=== PATIENT | female | born 1985 | race Caucasian/White ===

== ENCOUNTER 2016-04-04 14:40 | Inpatient (IN) | payer OTHER ==
[2016-04-04 15:21] VITALS: BMI 23.4
--- NOTE | 2016-04-04 17:28 | HP ---
CIWA Score - CIWA Score Nausea/Vomitin Muscle Tremors: 3 Anxiety: 3 Agitation: 2 Paroxysmal Sweats: 1-Minimal Palms Moist Orientation: 0-Oriented Tacttile Disturbances: 1-Very Mild Itch/Numbness Auditory Disturbances: 1-Very Mild Visual Disturbances: 1-Very Mild Sensitivity Headache: 2-Mild CIWA-Ar Total Score: 17 Admission ROS BHS - HPI Chief Complaint: i need help to stop drinking alcohol Allergies/Adverse Reactions: Allergies Allergy/AdvReac Type Severity Reaction Status Date / Time No Known Allergies Allergy Verified 04/04/16 17:25 History of Present Illness: this 30 years old transgender with alcohol dependence,withdrawal symptom,never been in detox before syncope alcohol related hiv since 2004 nicotine dependence no significant period of sobriety Exam Limitations: No Limitations - Ebola screening Have you traveled outside of the country in the last 21 days: No Have you had contact with anyone from an Ebola affected area: No Have you been sick,other than usual withdrawal symptoms: No Do you have a fever: No - Review of Systems Constitutional: Loss of Appetite, Malaise, Night Sweats, Changes in sleep, Weakness EENT: reports: Nose Congestion Respiratory: reports: No Symptoms reported Cardiac: reports: No Symptoms Reported GI: reports: Nausea, Vomiting, Abdominal cramping : reports: No Symptoms Reported Musculoskeletal: reports: Back Pain, Muscle Pain Neuro: reports: Tremors Endocrine: reports: No Symptoms Reported Hematology: reports: Other (hiv) Psychiatric: reports: No Sypmtoms Reported Patient History - Patient Medical History Hx Anemia: No Hx Asthma: No Hx Chronic Obstructive Pulmonary Disease (COPD): No Hx Cancer: No Hx Cardiac Disorders: No Hx Congestive Heart Failure: No Hx Hypertension: No Hx Hypercholesterolemia: No Hx Pacemaker: No HX Cerebrovascular Accident: No Hx Seizures: No Hx Dementia: No Hx Diabetes: No Hx Gastrointestinal Disorders: No Hx Liver Disease: No Hx Genitourinary Disorders: No Hx Sexually Transmitted Disorders: No Hx Renal Disease (ESRD): No Hx Thyroid Disease: No Hx Human Immunodeficiency Virus (HIV): Yes (since 2004) Hx Hepatitis C: No Hx Depression: No Hx Suicide Attempt: No Hx Bipolar Disorder: No Hx Schizophrenia: No Other Medical History: no suicidal,no homicidal - Patient Surgical History Past Surgical History: No Hx Neurologic Surgery: No Hx Cataract Extraction: No Hx Cardiac Surgery: No Hx Lung Surgery: No Hx Breast Surgery: No Hx Breast Biopsy: No Hx Abdominal Surgery: No Hx Appendectomy: No Hx Cholecystectomy: No Hx Genitourinary Surgery: No Hx Section: No Hx Orthopedic Surgery: No Anesthesia Reaction: No - PPD History Previous Implant?: Yes Documented Results: Negative w/o proof Implanted On [facility] Admission?: No PPD to be Administered?: Yes - Smoking Cessation Smoking history: Current every day smoker Have you smoked in the past 12 months: Yes Aproximately how many cigarettes per day: 10 Hx Chewing Tobacco Use: No Initiated information on smoking cessation: Yes 'Breaking Loose' booklet given: 04/04/16 - Substance & Tx. History Hx Alcohol Use: Yes Hx Substance Use: No Substance Use Type: Alcohol Hx Substance Use Treatment: No - Substances Abused Alcohol Route: Oral Frequency: Daily Amount used: LIQUOR- 3 PINTS, BEER- 2 SIX PACK Age of first use: 17 Date of Last Use: 04/04/16 Family Disease History - Family Disease History Family History: Denies Admission Physical Exam [facility] - Vital Signs Vital Signs: Vital Signs - 24 hr 04/04/16 04/04/16 15:17 17:22 Temperature 96.3 F L 96.3 F L Pulse Rate 83 83 Respiratory 20 20 Rate Blood Pressure 130/82 130/82 - Physical General Appearance: Yes: Moderate Distress, Tremorous, Irritable, Sweating, Anxious HEENTM: Yes: Nasal Congestion Respiratory: Yes: Lungs Clear Neck: Yes: Within Normal Limits Breast: Yes: Breast Exam Deferred Cardiology: Yes: Within Normal Limits, Regular Rhythm, Regular Rate, S1, S2 Abdominal: Yes: Within Normal Limits, Normal Bowel Sounds, Flat, Soft Genitourinary: Yes: Within Normal Limits Back: Yes: Muscle Spasm Musculoskeletal: Yes: Back pain, Muscle Pain Extremities: Yes: Tremors Neurological: Yes: home visits nurse II-XII NML intact, Fully Oriented, Alert, Motor Strength 5/5 Integumentary: Yes: Dry Lymphatic: Yes: Within Normal Limits - Diagnostic (1) Alcohol dependence with uncomplicated withdrawal Current Visit: Yes Status: Acute (2) Syncope Current Visit: Yes Status: Acute (3) HIV (human immunodeficiency virus infection) Current Visit: Yes Status: Acute (4) Transgender Current Visit: Yes Status: Acute (5) History of herpes genitalis Current Visit: Yes Status: Acute Cleared for Admission [facility] - Detox or Rehab [facility] Level of Care: Medically Managed Detox Regimen/Protocol: Librium (urine for drug screen showed postive for benzodiazepine) [facility] Breath Alcohol Content Breath Alcohol Content: 0 Urine Pregancy Test - Result Urine Test Results: Negative- NO Line Present Urine Drug Screen - Results Drug Screen Negative: No Urine Drug Screen Results: BZO-Benzodiazepines
[2016-04-04] MEDS ORDERED: chlordiazePOXIDE HCL 25 MG CAPSULE PO PRN (17:41)
[2016-04-04] MEDS ORDERED: hydrOXYzine PAMOATE 50 MG CAPSULE (FP) PO PRN (17:41)
[2016-04-04] MEDS ORDERED: MAG HYDROX/AL HYDROX/SIMETH 30 ML UNIT-DOSE CUP PO PRN (17:41)
[2016-04-04] MEDS ORDERED: LOPERAMIDE HCL 2 MG CAPSULE PO PRN (17:41)
[2016-04-04] MEDS ORDERED: P-EPHED 60MG/TRIPROLIDI 2.5MG TABLET PO PRN (17:41)
[2016-04-04] MEDS ORDERED: ACETAMINOPHEN 325 MG TABLET (FP) PO PRN (17:41)
[2016-04-04] MEDS ORDERED: chlordiazePOXIDE HCL 25 MG CAPSULE PO ONE (17:41)
[2016-04-04] MEDS ORDERED: NICOTINE POLACRILEX 2 MG GUM BC PRN (17:41)
[2016-04-04] MEDS ORDERED: MAGNESIUM CITRATE 300 ML BOTTLE PO PRN (17:41)
[2016-04-04] MEDS ORDERED: diphenhydrAMINE HCL 50 MG CAPSULE PO PRN (17:41)
[2016-04-04] MEDS ORDERED: IBUPROFEN 400 MG TABLET (FP) PO PRN (17:41)
[2016-04-04] MEDS ORDERED: MENTHOL/PHENOL 1 EACH UD MM PRN (17:41)
[2016-04-04] MEDS ORDERED: MAGNESIUM HYDROX 2400MG/30ML ORAL SUSPENSION 30 ML CUP PO PRN (17:41)
[2016-04-04] MEDS ORDERED: guaiFENesin/D-METHORPHAN HB 10 ML UNIT-DOSE CUPS PO PRN (17:41)
[2016-04-04] MEDS: THIAMINE HCL 100 MG TABLET (FP) PO SCH (22:32)
[2016-04-04] MEDS: chlordiazePOXIDE HCL 25 MG CAPSULE PO SCH (22:33)
[2016-04-05] MEDS: chlordiazePOXIDE HCL 25 MG CAPSULE PO SCH ×4 (06:14→22:40)
[2016-04-05 09:59] LABS: MCH 34.2 pg (25.7-33.7); MCHC 33.4 g/dl (32.0-36.0); MEAN CELL VOLUME 102.4 fl (80-96); MEAN PLT VOLUME 10.4 fl (7.5-11.1); PLATELET COUNT 161 K/MM3 (134-434); RDW 12.5 % (11.6-15.6); WHITE BLOOD COUNT 5.8 K/mm3 (4.0-10.0)
[2016-04-05 10:02] LABS: URINE APPEARANCE SLCLOUDY; URINE BILIRUBIN NEGATIVE (NEGATIVE); URINE BLOOD NEGATIVE (NEGATIVE); URINE COLOR YELLOW; URINE GLUCOSE (UA) NEGATIVE (NEGATIVE); URINE KETONE NEGATIVE (NEGATIVE); URINE LEUK ESTERASE NEGATIVE (NEGATIVE); URINE NITRITE NEGATIVE (NEGATIVE); URINE PROTEIN NEGATIVE (NEGATIVE); URINE UROBILINOGEN NEGATIVE E.U./dl (0.2-1.0)
[2016-04-05] MEDS: SPIRONOLACTONE 25 MG TABLET (FP) PO SCH (10:33)
[2016-04-05] MEDS: PRENATAL VITAMINS W/ FOLIC ACID TABLET (FP) PO SCH (10:33)
[2016-04-05 10:43] LABS: ALBUMIN 3.2 g/dl (3.4-5.0); ALK PHOS 67 U/L (45-117); ANION GAP 9 (8-16); BILIRUBIN,TOTAL 0.3 mg/dL (0.2-1.0); CALCIUM 8.5 mg/dL (8.5-10.1); CO2 25 mmol/L (21-32); CREATININE 0.9 mg/dL (0.55-1.02); GLUCOSE,RANDOM 90 mg/dL (74-106); SGOT/AST 13 U/L (15-37); SGPT/ALT 26 U/L (12-78); TOT PROT 6.1 g/dl (6.4-8.2)
--- NOTE | 2016-04-05 12:43 | PN ---
S CIWA - CIWA Score Nausea/Vomitin Muscle Tremors: 3 Anxiety: 3 Agitation: 2 Paroxysmal Sweats: 1-Minimal Palms Moist Orientation: 0-Oriented Tacttile Disturbances: 1-Very Mild Itch/Numbness Auditory Disturbances: 1-Very Mild Visual Disturbances: 1-Very Mild Sensitivity Headache: 2-Mild CIWA-Ar Total Score: 17 BHS Progress Note (SOAP) Subjective: ALERT,IRRITABLE,ANXIOUS,INTERRUPTED SLEEP,TREMOR Objective: 04/05/16 12:41 Vital Signs Temperature 97.9 F 04/05/16 11:03 Pulse Rate 88 04/05/16 11:03 Respiratory Rate 20 04/05/16 11:03 Blood Pressure 118/73 04/05/16 11:03 O2 Sat by Pulse Oximetry (%) EKG NSR,NORMAL ECG Laboratory Last Values WBC 5.8 K/mm3 (4.0-10.0) 04/05/16 07:20 RBC 3.92 M/mm3 (3.60-5.2) 04/05/16 07:20 Hgb 13.4 GM/dL (10.7-15.3) 04/05/16 07:20 Hct 40.2 % (32.4-45.2) 04/05/16 07:20 MCV 102.4 fl (80-96) H 04/05/16 07:20 MCHC 33.4 g/dl (32.0-36.0) 04/05/16 07:20 RDW 12.5 % (11.6-15.6) 04/05/16 07:20 Plt Count 161 K/MM3 (134-434) 04/05/16 07:20 MPV 10.4 fl (7.5-11.1) 04/05/16 07:20 Sodium 139 mmol/L (136-145) 04/05/16 07:20 Potassium 3.8 mmol/L (3.5-5.1) 04/05/16 07:20 Chloride 105 mmol/L (98-107) 04/05/16 07:20 Carbon Dioxide 25 mmol/L (21-32) 04/05/16 07:20 Anion Gap 9 (8-16) 04/05/16 07:20 BUN 12 mg/dL (7-18) 04/05/16 07:20 Creatinine 0.9 mg/dL (0.55-1.02) 04/05/16 07:20 Creat Clearance w eGFR > 60 (>60) 04/05/16 07:20 Random Glucose 90 mg/dL (74-106) 04/05/16 07:20 Calcium 8.5 mg/dL (8.5-10.1) 04/05/16 07:20 Total Bilirubin 0.3 mg/dL (0.2-1.0) 04/05/16 07:20 AST 13 U/L (15-37) L 04/05/16 07:20 ALT 26 U/L (12-78) 04/05/16 07:20 Alkaline Phosphatase 67 U/L (45-117) 04/05/16 07:20 Total Protein 6.1 g/dl (6.4-8.2) L 04/05/16 07:20 Albumin 3.2 g/dl (3.4-5.0) L 04/05/16 07:20 Urine Color Yellow 04/05/16 07:50 Urine Appearance Slcloudy 04/05/16 07:50 Urine pH 6.0 (5.0-8.0) 04/05/16 07:50 Ur Specific [place] 1.025 (1.001-1.035) 04/05/16 07:50 Urine Protein Negative (NEGATIVE) 04/05/16 07:50 Urine Glucose (UA) Negative (NEGATIVE) 04/05/16 07:50 Urine Ketones Negative (NEGATIVE) 04/05/16 07:50 Urine Blood Negative (NEGATIVE) 04/05/16 07:50 Urine Nitrite Negative (NEGATIVE) 04/05/16 07:50 Urine Bilirubin Negative (NEGATIVE) 04/05/16 07:50 Urine Urobilinogen Negative E.U./dl (0.2-1.0) 04/05/16 07:50 Ur Leukocyte Esterase Negative (NEGATIVE) 04/05/16 07:50 RPR Titer Nonreactive (NONREACTIVE) 04/05/16 07:20 Assessment: 04/05/16 12:42 WITHDRAWAL SYMPTOM Plan: CONTINUE DETOX
[2016-04-05] MEDS: THIAMINE HCL 100 MG TABLET (FP) PO SCH (22:40)
[2016-04-06] MEDS: chlordiazePOXIDE HCL 25 MG CAPSULE PO SCH ×3 (06:20→17:29)
[2016-04-06] MEDS: PRENATAL VITAMINS W/ FOLIC ACID TABLET (FP) PO SCH ×2 (10:40→11:25)
--- NOTE | 2016-04-06 11:00 | PN ---
[facility] CIWA - CIWA Score Nausea/Vomitin-No Nausea/No Vomiting Muscle Tremors: 3 Anxiety: 3 Agitation: 3 Paroxysmal Sweats: 3 Orientation: 0-Oriented Tacttile Disturbances: 0-None Auditory Disturbances: 0-None Visual Disturbances: 0-None Headache: 0-None Present CIWA-Ar Total Score: 12 [facility] Progress Note (SOAP) Subjective: tired sweats irritable interrupted sleep Objective: 04/06/16 11:00 Vital Signs Temperature 97.0 F L 04/06/16 06:00 Pulse Rate 59 L 04/06/16 06:00 Respiratory Rate 18 04/06/16 06:00 Blood Pressure 100/68 04/06/16 06:00 O2 Sat by Pulse Oximetry (%) Laboratory Tests 04/05/16 04/05/16 04/05/16 07:20 07:20 07:20 WBC 5.8 RBC 3.92 Hgb 13.4 Hct 40.2 MCV 102.4 H MCHC 33.4 RDW 12.5 Plt Count 161 MPV 10.4 Sodium 139 Potassium 3.8 Chloride 105 Carbon Dioxide 25 Anion Gap 9 BUN 12 Creatinine 0.9 Creat Clearance w eGFR > 60 Random Glucose 90 Calcium 8.5 Total Bilirubin 0.3 AST 13 L ALT 26 Alkaline Phosphatase 67 Total Protein 6.1 L Albumin 3.2 L Urine Color Urine Appearance Urine pH Ur Specific [place] Urine Protein Urine Glucose (UA) Urine Ketones Urine Blood Urine Nitrite Urine Bilirubin Urine Urobilinogen Ur Leukocyte Esterase RPR Titer Nonreactive 04/05/16 07:50 WBC RBC Hgb Hct MCV MCHC RDW Plt Count MPV Sodium Potassium Chloride Carbon Dioxide Anion Gap BUN Creatinine Creat Clearance w eGFR Random Glucose Calcium Total Bilirubin AST ALT Alkaline Phosphatase Total Protein Albumin Urine Color Yellow Urine Appearance Slcloudy Urine pH 6.0 Ur Specific [place] 1.025 Urine Protein Negative Urine Glucose (UA) Negative Urine Ketones Negative Urine Blood Negative Urine Nitrite Negative Urine Bilirubin Negative Urine Urobilinogen Negative Ur Leukocyte Esterase Negative RPR Titer awake/alert ambulating no acute distress Assessment: 04/06/16 11:01 withdrawal sx Plan: continue detox increase fluids
[2016-04-06] MEDS: SPIRONOLACTONE 25 MG TABLET (FP) PO SCH (11:25)
--- NOTE | 2016-04-06 14:00 | EKG ---
Test Reason : Blood Pressure : / mmHG Vent. Rate : 073 BPM Atrial Rate : 073 BPM P-R Int : 198 ms QRS Dur : 092 ms QT Int : 398 ms P-R-T Axes : 059 014 037 degrees QTc Int : 438 ms NORMAL SINUS RHYTHM NORMAL ECG NO PREVIOUS ECGS AVAILABLE Confirmed by JERSEY KITCHEN MD ([id number]) on 04/06/2016 2:00:13 PM Referred By: Confirmed By:JERSEY KITCHEN MD
[2016-04-06] MEDS: valACYclovir HCL 500 MG TABLET (FP) PO SCH ×2 (14:34→22:20)
[2016-04-06] MEDS: chlordiazePOXIDE 5 MG CAPSULE PO SCH (22:20)
[2016-04-06] MEDS: THIAMINE HCL 100 MG TABLET (FP) PO SCH (22:21)
[2016-04-07] MEDS: chlordiazePOXIDE 5 MG CAPSULE PO SCH ×3 (06:09→17:24)
--- NOTE | 2016-04-07 10:16 | PN ---
BHS Progress Note (SOAP) Subjective: feeling better sweats interrupted sleep Objective: 04/07/16 10:15 Vital Signs Temperature 97.8 F 04/07/16 06:54 Pulse Rate 67 04/07/16 06:54 Respiratory Rate 16 04/07/16 06:54 Blood Pressure 100/65 04/07/16 06:54 O2 Sat by Pulse Oximetry (%) awake/alert ambulating no acute distress Assessment: 04/07/16 10:15 withdrawal sx Plan: continue detox increase fluids d/c in am
[2016-04-07] MEDS: SPIRONOLACTONE 25 MG TABLET (FP) PO SCH (10:22)
[2016-04-07] MEDS: PRENATAL VITAMINS W/ FOLIC ACID TABLET (FP) PO SCH (10:22)
[2016-04-07] MEDS: valACYclovir HCL 500 MG TABLET (FP) PO SCH ×2 (10:24→22:21)
[2016-04-07] MEDS: chlordiazePOXIDE HCL 10 MG CAPSULE PO SCH (22:21)
[2016-04-07] MEDS: THIAMINE HCL 100 MG TABLET (FP) PO SCH (22:22)
[2016-04-08] MEDS: chlordiazePOXIDE HCL 10 MG CAPSULE PO SCH (06:27)
--- NOTE | 2016-04-08 08:48 | PN ---
S Progress Note (SOAP) Subjective: ALERT,NO COMPLAINT Objective: 04/08/16 08:47 Vital Signs Temperature 97.2 F L 04/08/16 06:00 Pulse Rate 49 L 04/08/16 06:00 Respiratory Rate 18 04/08/16 06:00 Blood Pressure 97/61 04/08/16 06:00 O2 Sat by Pulse Oximetry (%) Assessment: 04/08/16 08:47 DETOX COMPLETED,NO WITHDRAWAL SYMPTOM Plan: DISCHARGE TODAY,FOLLOW UP WITH AFTER CARE PROGRAM ARRANGEMENT AND PMD FOR MEDICAL PROBLEM
--- NOTE | 2016-04-08 08:53 | DS ---
[facility] Detox Discharge Summary Admission Date: 04/04/16 Discharge Date: 04/08/16 - History Present History: Alcohol Dependence Additional Comments: FOLLOW UP WITH AFTER [facility] PROGRAM ARRANGEMENT AND PMD FOR MEDICAL PROBLEM Pertinent Past History: HIV [employer]ENDER HISTORY OF GENITAL HERPES - Physical Exam Results Vital Signs: Vital Signs Temperature 97.2 F L 04/08/16 06:00 Pulse Rate 49 L 04/08/16 06:00 Respiratory Rate 18 04/08/16 06:00 Blood Pressure 97/61 04/08/16 06:00 O2 Sat by Pulse Oximetry (%) Pertinent Admission Physical Exam Findings: WITHDRAWAL SYMPTOM - Treatment Hospital Course: Detox Protocol Followed, Detoxed Safely, Responded well, Discharged Condition Good - Medication Discharge Medications: Ambulatory Orders Abacavir/Dolutegravir/Lamivudi [Triumeq Tablet] 1 each PO DAILY 04/04/16 Estradiol Valerate [Delestrogen] 40 mg IM MONTHLY 04/04/16 Spironolactone [Aldactone] 200 mg PO DAILY 04/04/16 Vit B12/Pyridoxine/Thiamine [Apatate Liquid] 1,000 ml IM MONTHLY 04/04/16 - Diagnosis (1) Alcohol dependence with uncomplicated withdrawal Current Visit: Yes Status: Acute (2) Syncope Current Visit: Yes Status: Acute (3) HIV (human immunodeficiency virus infection) Current Visit: Yes Status: Acute (4) Transgender Current Visit: Yes Status: Acute (5) History of herpes genitalis Current Visit: Yes Status: Acute - AMA Did Patient Leave Against Medical Advice: No
[2016-04-08] MEDS: SPIRONOLACTONE 25 MG TABLET (FP) PO SCH (09:13)
[2016-04-08] MEDS: PRENATAL VITAMINS W/ FOLIC ACID TABLET (FP) PO SCH (09:14)
[2016-04-08] MEDS: valACYclovir HCL 500 MG TABLET (FP) PO SCH (09:14)
[2016-04-08 10:16] VITALS: BP 105/71; PULSE 69; TEMP 97.7
== END 2016-04-08 09:20 | disposition home or self-care (01) | DRG 775 ==
LOC: YASAS 14:40 → Y6N 15:59
PROVIDERS: ADMIT Internal Medicine; ATTEND Internal Medicine Addiction Medicine
PROC: HZ2ZZZZ Detoxification Services for Substance Abuse Treatment (ICD-10-PCS; principal; 2016-04-08)
DX: F10.230 Alcohol dependence with withdrawal, uncomplicated (principal); Z21 Asymptomatic human immunodeficiency virus [HIV] infection status; A60.00 Herpesviral infection of urogenital system, unspecified; R55 Syncope and collapse; F64.0 Transsexualism
CPT/HCPCS: 36415; 80053; 81003; 85027; 86593; 93005; 93010

== ENCOUNTER 2019-04-27 13:36 | Inpatient (IN) | payer OTHER ==
--- NOTE | 2019-04-27 15:03 | BHS.RME ---
Substance Use & Tx History - Substance Use History Opiates (Heroin) Substance amount: 12-13 bags Frequency of use: Daily Substance route: Injection (ex: intravenous or skin popping) Date of Last Use: 04/27/19 Physical/Psych/Mental Status - Behavior General Behavior: Increased activity (restlessness, agitation) - Cooperativeness Cooperativeness: Cooperative - Thinking Thought Processes: Loosened Thought content: Future oriented - Physical Health Problems Is patient presently having any pain?: No Does patient presently have any injuries (include location): No Does patient currently have a fever: No Is patient : No COWS - Scale Resting Pulse: 0= [place] 80 or Below Sweatin= No chills or Flushing Restless Observation: 3= Extraneous Movement Pupil Size: 0= Normal to Room Light Bone or Joint Aches: 1= Mild Discomfort Runny Nose/ Eye Tearin= None GI Upset > 30mins: 0= None Tremor Observation: 0= None Yawning Observation: 0= None Anxiety or Irritability: 2=Irritable/Anxious Goose Flesh Skin: 0=Smooth Skin COWS Score: 6
--- NOTE | 2019-04-27 16:14 | HP ---
COWS - Scale Resting Pulse: 1= [place] 81-100 Sweatin= Chills/Flushing Restless Observation: 3= Extraneous Movement Pupil Size: 0= Normal to Room Light Bone or Joint Aches: 1= Mild Discomfort Runny Nose/ Eye Tearin= None GI Upset > 30mins: 0= None Tremor Observation: 1= Tremor [place], Not Seen Yawning Observation: 1= 1-2x During Session Anxiety or Irritability: 2=Irritable/Anxious Goose Flesh Skin: 0=Smooth Skin COWS Score: 10 CIWA Score - Admission Criteria [facility] Guidelines: Admission for Medically Managed Detox: Requires at least one of the followin. CIWA greater than 12 2. Seizures within the past 24 hours 3. Delirium tremens within the past 24 hours 4. Hallucinations within the past 24 hours 5. Acute intervention needed for co occurring medical disorder 6. Acute intervention needed for co occurring psychiatric disorder 7. Severe withdrawal that cannot be handled at a lower level of care (continued vomiting, continued diarrhea, abnormal vital signs) requiring intravenous medication and/or fluids 8. Admitting History and Physical - Admission History of Present Illness: This is a 36 year old male with PMH of HIV (not on any ART for 1.5 years, last CD4 <18 a few months ago, does not remember last viral load), syphillis (treated ), and ADHD. He has been using heroin for the past 2 years, injecting for the past 1 year. Uses 12-13 bags daily, last use was this morning, used a few bags. [place] twice, last time was 6 months ago, Narcan was used. Was previously on suboxone program , has not used for the past 3 weeks. He uses meth, $50-60 lasts 2-3 days. Last used today $50 worth. Started using around 3 years ago. Smokes 5-6 cigarettes per day No alcohol or marijuana use. ROS: - Tired, lethargic - Sore throat - Joint aches and soreness - Polyuria PMH: - On estrogen and spironolactone for gender change - HIV (not on any ART for 1.5 years, last CD4 <18 a few months ago, does not remember last viral load), syphillis (treated), and ADHD. - On Valtrex for HIV PSH: - None Social: - Lives by himself in [place] - Recently got in touch with family after a few years, currently unemployed - Brother committed suicide 2 months ago - Was incarcerated 2 years ago Physical Exam: - COWS - AOx3 - Oropharynx: mild thrush in posterior oropharynx - Lungs: Clear B/L - CVS: 2/6 systolic murmur on LSB - Abdomen: Soft, ND, NT - LE: No edema, no calf tenderness - [employer] CROPS: Motor 5/5 B/L, sensations intact Plan: - COWS 10, will admit for heroin detox - Hx of HIV, will resume meds, will treat thrush with Fluconazole 100mg PO - Pt on Suboxone program but states he hasn't used for 3 weeks. Attempted to contact providing physicians Dr. Fallon/Rocael but was unable to get in touch with anyone. - Low mood and affect, recent suicide in family, Psych consult placed - Smoking History Smoking history: Current every day smoker Have you smoked in the past 12 months: Yes Aproximately how many cigarettes per day: 10 - Alcohol/Substance Use Hx Alcohol Use: Yes Admission [facility] Allergies/Adverse Reactions: Allergies Allergy/AdvReac Type Severity Reaction Status Date / Time sulfamethoxazole Allergy Rash Verified 04/27/19 16:51 [From Bactrim] trimethoprim [From Bactrim] Allergy Rash Verified 04/27/19 16:51 haloperidol [From Haldol] AdvReac Verified 04/27/19 16:50 Patient History - Patient Medical History Hx Anemia: No Hx Asthma: No Hx Chronic Obstructive Pulmonary Disease (COPD): No Hx Cancer: No Hx Cardiac Disorders: No Hx Congestive Heart Failure: No Hx Hypertension: No Hx Hypercholesterolemia: No Hx Pacemaker: No HX Cerebrovascular Accident: No Hx Seizures: No Hx Dementia: No Hx Diabetes: No Hx Gastrointestinal Disorders: No Hx Liver Disease: No Hx Genitourinary Disorders: No Hx Sexually Transmitted Disorders: No Hx Renal Disease (ESRD): No Hx Thyroid Disease: No Hx Human Immunodeficiency Virus (HIV): Yes (since 2004) Hx Hepatitis C: No Hx Depression: No Hx Suicide Attempt: No Hx Bipolar Disorder: No Hx Schizophrenia: No - Patient Surgical History Past Surgical History: No Hx Neurologic Surgery: No Hx Cataract Extraction: No Hx Cardiac Surgery: No Hx Lung Surgery: No Hx Breast Surgery: No Hx Breast Biopsy: No Hx Abdominal Surgery: No Hx Appendectomy: No Hx Cholecystectomy: No Hx Genitourinary Surgery: No Hx Section: No Hx Orthopedic Surgery: No Anesthesia Reaction: No - PPD History Date: 04/06/16 - Smoking Cessation Smoking history: Current every day smoker Have you smoked in the past 12 months: Yes Aproximately how many cigarettes per day: 10 Hx Chewing Tobacco Use: No - Substances abused Heroin Substance route: Injection Frequency: Daily Amount used: 13 bags Age of first use: 32 Date of last use: 04/27/19 Crystal meth Substance route: Smoking Frequency: 1-3 times last 30 days Amount used: 50 to 100 dollars Age of first use: 29 Date of last use: 04/27/19
[2019-04-27] MEDS ORDERED: cloNIDine HCL 0.1 MG TABLET PO PRN (16:25)
[2019-04-27] MEDS ORDERED: MENTHOL/PHENOL 1 EACH UD MM PRN (16:25)
[2019-04-27] MEDS ORDERED: MAG HYDROX/AL HYDROX/SIMETH 30 ML UNIT-DOSE CUP PO PRN (16:25)
[2019-04-27] MEDS ORDERED: NICOTINE POLACRILEX 2 MG GUM BUC PRN (16:25)
[2019-04-27] MEDS ORDERED: MAGNESIUM CITRATE 300 ML BOTTLE PO PRN (16:25)
[2019-04-27] MEDS ORDERED: MAGNESIUM HYDROX 2400MG/30ML ORAL SUSPENSION 30 ML CUP PO PRN (16:25)
[2019-04-27] MEDS ORDERED: hydrOXYzine PAMOATE 25 MG CAPSULE (FP) PO PRN (16:25)
[2019-04-27] MEDS ORDERED: ACETAMINOPHEN 325 MG TABLET (FP) PO PRN ×2 (16:25)
[2019-04-27] MEDS ORDERED: BISMUTH SUBSALICYLATE 524 MG/30 ML UD PO PRN (16:25)
[2019-04-27] MEDS ORDERED: METHOCARBAMOL 500 MG TABLET PO PRN (16:25)
[2019-04-27 17:08] VITALS: BMI 19.8
[2019-04-27] MEDS ORDERED: METHADONE HCL 10 MG TABLET (FOR DETOX USE ONLY) PO ONE (17:15)
[2019-04-27] MEDS ORDERED: VIT B12 IM SCH (17:45)
[2019-04-27] MEDS ORDERED: THIAMINE IM SCH (17:45)
[2019-04-27] MEDS ORDERED: [UNRECOGNIZED DRUG - OTHER] IM SCH (17:45)
[2019-04-27] MEDS ORDERED: PYRIDOXINE IM SCH (17:45)
[2019-04-27] MEDS ORDERED: FLUCONAZOLE 100 MG TABLET (UD) PO ONE (18:00)
[2019-04-27] MEDS: valACYclovir HCL 500 MG TABLET (FP) PO SCH (22:38)
[2019-04-27] MEDS: THIAMINE HCL 100 MG TABLET (FP) PO SCH (22:38)
[2019-04-28] MEDS: ABACAVIR/DOLUTEGRAVIR/LAMIVUDI (TRIUMEQ) TABLET -NF PO SCH (07:46)
[2019-04-28] MEDS ORDERED: METHADONE HCL 10 MG TABLET (FOR DETOX USE ONLY) ONE (09:48)
[2019-04-28] MEDS ORDERED: METHADONE HCL 5 MG TABLET (FOR DETOX USE ONLY) ONE (09:49)
[2019-04-28] MEDS ORDERED: ESTRADIOL VALERATE 100 MG/5 ML VIAL IM ONE (10:00)
[2019-04-28] MEDS ORDERED: METHADONE (DETOX) 20 MG, METHADONE (DETOX) 5 MG PO ONE (10:00)
[2019-04-28] MEDS: valACYclovir HCL 500 MG TABLET (FP) PO SCH ×2 (11:03→22:21)
[2019-04-28] MEDS: PRENATAL VITAMINS W/ FOLIC ACID TABLET (FP) PO SCH (11:03)
[2019-04-28] MEDS: SPIRONOLACTONE 25 MG TABLET (FP) PO SCH (11:04)
[2019-04-28 11:21] LABS: MCH 29.2 pg (25.7-33.7); MCHC 33.3 g/dl (32.0-35.9); MEAN CELL VOLUME 87.5 fl (80-96); MEAN PLT VOLUME 9.7 fl (7.5-11.1); PLATELET COUNT 143 K/MM3 (134-434); RBC 4.45 M/mm3 (4.00-5.60); RDW 13.4 % (11.9-15.9); WHITE BLOOD COUNT 4.3 K/mm3 (4.0-10.0)
[2019-04-28 11:25] LABS: ALBUMIN 2.6 g/dl (3.4-5.0); BILIRUBIN,TOTAL 0.3 mg/dL (0.2-1); BLOOD UREA NITROGEN 14.8 mg/dL (7-18); CALCIUM 8.4 mg/dL (8.5-10.1); CREATININE 0.7 mg/dL (0.55-1.3); POTASSIUM 3.8 mmol/L (3.5-5.1); TOT PROT 6.3 g/dl (6.4-8.2)
--- NOTE | 2019-04-28 11:37 | PN ---
S COWS - Scale Resting Pulse: 0= [place] 80 or Below Sweatin= No chills or Flushing Restless Observation: 1= Difficult to Sit Still Pupil Size: 1= Pupils >than Normal Bone or Joint Aches: 2= Severe Diffuse Aches Runny Nose/ Eye Tearin= Nasal Congestion GI Upset > 30mins: 1= Stomach Cramp Tremor Observation of Outstretched Hands: 2= Slight Tremor Visible Yawning Observation: 1= 1-2x During Session Anxiety or Irritability: 2=Irritable/Anxious Goose Flesh Skin: 0=Smooth Skin COWS Score: 11 S Progress Note (SOAP) Subjective: alert,irritable,anxious,interrupted sleep,pain in the body Objective: 04/28/19 11:36 Vital Signs Temperature 98.1 F 04/28/19 08:40 Pulse Rate 65 04/28/19 08:40 Respiratory Rate 18 04/28/19 08:40 Blood Pressure 119/68 04/28/19 08:40 O2 Sat by Pulse Oximetry (%) Laboratory Last Values WBC 4.3 K/mm3 (4.0-10.0) 04/28/19 08:00 RBC 4.45 M/mm3 (4.00-5.60) 04/28/19 08:00 Hgb 13.0 GM/dL (11.7-16.9) 04/28/19 08:00 Hct 39.0 % (35.4-49) 04/28/19 08:00 MCV 87.5 fl (80-96) 04/28/19 08:00 MCH 29.2 pg (25.7-33.7) D 04/28/19 08:00 MCHC 33.3 g/dl (32.0-35.9) 04/28/19 08:00 RDW 13.4 % (11.9-15.9) 04/28/19 08:00 Plt Count 143 K/MM3 (134-434) 04/28/19 08:00 MPV 9.7 fl (7.5-11.1) 04/28/19 08:00 Sodium 139 mmol/L (136-145) 04/28/19 08:00 Potassium 3.8 mmol/L (3.5-5.1) 04/28/19 08:00 Chloride 104 mmol/L (98-107) 04/28/19 08:00 Carbon Dioxide 33 mmol/L (21-32) H 04/28/19 08:00 Anion Gap 2 MMOL/L (8-16) L 04/28/19 08:00 BUN 14.8 mg/dL (7-18) 04/28/19 08:00 Creatinine 0.7 mg/dL (0.55-1.3) 04/28/19 08:00 Est GFR (CKD-EPI)AfAm 143.71 04/28/19 08:00 Est GFR (CKD-EPI)NonAf 123.99 04/28/19 08:00 Random Glucose 72 mg/dL (74-106) L 04/28/19 08:00 Calcium 8.4 mg/dL (8.5-10.1) L 04/28/19 08:00 Total Bilirubin 0.3 mg/dL (0.2-1) 04/28/19 08:00 AST 15 U/L (15-37) 04/28/19 08:00 ALT 19 U/L (13-61) 04/28/19 08:00 Alkaline Phosphatase 114 U/L (45-117) 04/28/19 08:00 Total Protein 6.3 g/dl (6.4-8.2) L 04/28/19 08:00 Albumin 2.6 g/dl (3.4-5.0) L 04/28/19 08:00 Assessment: 04/28/19 11:37 withdrawal symptom Plan: continue detox methadone regimen
[2019-04-28] MEDS ORDERED: PNEUMOC 13-VAL CONJ-DIP CRM/PF 0.5 ML DISP.SYRIN IM ONE (12:00)
[2019-04-28] MEDS ORDERED: FLU VACCINE QUAD 60 MCG/0.5 ML (MDV 19-20) IM ONE (12:00)
--- NOTE | 2019-04-28 12:52 | EKG ---
Test Reason : Blood Pressure : / mmHG Vent. Rate : 073 BPM Atrial Rate : 073 BPM P-R Int : 190 ms QRS Dur : 084 ms QT Int : 390 ms P-R-T Axes : 027 067 057 degrees QTc Int : 429 ms NORMAL SINUS RHYTHM NORMAL ECG WHEN COMPARED WITH ECG OF 04-APR-2016 18:29, NO SIGNIFICANT CHANGE WAS FOUND Confirmed by GERALDO BAY MD ([id number]) on 04/28/2019 12:52:22 PM Referred By: Confirmed By:GERALDO BAY MD
--- NOTE | 2019-04-28 15:54 | PN ---
S Progress Note Note: patient stated had been getting delestrogen 4o mgs im mothly,last injection 2 weeks ago,not due for medication
--- NOTE | 2019-04-28 16:25 | CONSULT ---
[facility] Psychiatric Consult - Data Date of interview: 04/28/19 Admission source: [facility] Identifying data: Revisit to [facility] and admission to [address] [place] [address] for this 33 y/o transgender male (to female) for detoxification treatment. AMNA issues : opioid, nicotine, alcohol, crystal metamphetamine. Patient introduces self as , no children, domiciled, unemployed and supported on undisclosed means. Substance Abuse History: Discussed with the patient. Details in current [facility] report as follows : Smoking history: Current every day smoker. Have you smoked in the past 12 months: Yes. Aproximately how many cigarettes per day: 10. Hx Chewing Tobacco Use: No. - Substances abused. Heroin. Substance route: Injection. Frequency: Daily. Amount used: 13 bags. Age of first use: 32. Date of last use: 04/27/19. Crystal meth. Substance route: Smoking. Frequency : 1-3 times last 30 days. Amount used: 50 to 100 dollars. Age of first use: 29. Date of last use: 04/27/19 Medical History: Medical profile is remarkable for HIV infection since 2004 (on ART medications), antecedent of syphilis and cachexia. Noted report of two recent overdoses with heroin (managed with naloxone). Psychiatric History: Patient endorses history of multiple psychiatric hospitalizations ([facility], [facility], [facility], [facility]). Diagnosed with Bipolar Disorder + ADHD. Mr Santoyo is currently under of psychiatrist, Dr Fallon at the [facility] in the [place]. He is prescribed Adderall and other unnamed medications. Records indicate maintenance on suboxone (chronic non-adherence). Patient denies history of suicide attempts. Physical/Sexual Abuse/Trauma History: Noted report of recent suicide of patient' s brother (two months ago). Additional Comment: Toxicology not available for review. Mental Status Exam - Mental Status Exam Alert and Oriented to: Place, Person Cognitive Function: Impaired (mildly impaired; patient is falling asleep during interview; needs prompting from time to time to answer questions) Patient Appearance: Unkempt, Disheveled (frail, cachectic habitus) Mood: Withdrawn Affect: Constricted Patient Behavior: Sedated (moderately), Fatigued, Cooperative Speech Pattern: Delayed, Slurred Voice Loudness: Moderately Soft/Quiet Thought Process: Disorganized Thought Disorder: Bizarre Hallucinations: Denies Suicidal Ideation: Denies Homicidal Ideation: Denies Insight/Judgement: Poor Sleep: Well Appetite: Poor, Weight loss Gait/Station: Other (not observed out of bed since morning) Psychiatric Findings - Problem List ([place] 1, 2,3) (1) Opioid use disorder Current Visit: Yes Status: Chronic (2) Methamphetamine abuse Current Visit: Yes Status: Chronic Comment: As per self-report. (3) Nicotine dependence Current Visit: Yes Status: Chronic (4) Substance induced mood disorder Current Visit: Yes Status: Chronic - Initial Treatment Plan Initial Treatment Plan: Psychoeducation when fully awake. Sleep hygiene. Detoxification. Observation.
[2019-04-28] MEDS: MELATONIN 5 MG TABLETS PO PRN (22:21)
[2019-04-28] MEDS: THIAMINE HCL 100 MG TABLET (FP) PO SCH (22:21)
[2019-04-29] MEDS: ABACAVIR/DOLUTEGRAVIR/LAMIVUDI (TRIUMEQ) TABLET -NF PO SCH (07:42)
[2019-04-29] MEDS ORDERED: METHADONE HCL 10 MG TABLET (FOR DETOX USE ONLY) PO ONE (10:00)
[2019-04-29] MEDS: SPIRONOLACTONE 25 MG TABLET (FP) PO SCH (10:40)
[2019-04-29] MEDS: valACYclovir HCL 500 MG TABLET (FP) PO SCH ×2 (10:41→22:14)
[2019-04-29] MEDS: PRENATAL VITAMINS W/ FOLIC ACID TABLET (FP) PO SCH (10:44)
--- NOTE | 2019-04-29 12:30 | PN ---
[facility]HS COWS - Scale Resting Pulse: 0= [place] 80 or Below Sweatin= Chills/Flushing Restless Observation: 1= Difficult to Sit Still Pupil Size: 0= Normal to Room Light Bone or Joint Aches: 2= Severe Diffuse Aches Runny Nose/ Eye Tearin= None GI Upset > 30mins: 1= Stomach Cramp Tremor Observation of Outstretched Hands: 0= None Yawning Observation: 1= 1-2x During Session Anxiety or Irritability: 2=Irritable/Anxious Goose Flesh Skin: 0=Smooth Skin COWS Score: 8 BHS Progress Note (SOAP) Subjective: c/o sweats, anxiety, muscle aches, and irritability. Objective: 04/29/19 12:31 Vital Signs 04/29/19 04/29/19 04/29/19 06:38 07:25 09:25 Temperature 99 F 97.1 F L Pulse Rate 70 70 Respiratory 16 16 16 Rate Blood Pressure 126/78 119/74 Laboratory Last Values WBC 4.3 K/mm3 (4.0-10.0) 04/28/19 08:00 RBC 4.45 M/mm3 (4.00-5.60) 04/28/19 08:00 Hgb 13.0 GM/dL (11.7-16.9) 04/28/19 08:00 Hct 39.0 % (35.4-49) 04/28/19 08:00 MCV 87.5 fl (80-96) 04/28/19 08:00 MCH 29.2 pg (25.7-33.7) D 04/28/19 08:00 MCHC 33.3 g/dl (32.0-35.9) 04/28/19 08:00 RDW 13.4 % (11.9-15.9) 04/28/19 08:00 Plt Count 143 K/MM3 (134-434) 04/28/19 08:00 MPV 9.7 fl (7.5-11.1) 04/28/19 08:00 Sodium 139 mmol/L (136-145) 04/28/19 08:00 Potassium 3.8 mmol/L (3.5-5.1) 04/28/19 08:00 Chloride 104 mmol/L (98-107) 04/28/19 08:00 Carbon Dioxide 33 mmol/L (21-32) H 04/28/19 08:00 Anion Gap 2 MMOL/L (8-16) L 04/28/19 08:00 BUN 14.8 mg/dL (7-18) 04/28/19 08:00 Creatinine 0.7 mg/dL (0.55-1.3) 04/28/19 08:00 Est GFR (CKD-EPI)AfAm 143.71 04/28/19 08:00 Est GFR (CKD-EPI)NonAf 123.99 04/28/19 08:00 Random Glucose 72 mg/dL (74-106) L 04/28/19 08:00 Calcium 8.4 mg/dL (8.5-10.1) L 04/28/19 08:00 Total Bilirubin 0.3 mg/dL (0.2-1) 04/28/19 08:00 AST 15 U/L (15-37) 04/28/19 08:00 ALT 19 U/L (13-61) 04/28/19 08:00 Alkaline Phosphatase 114 U/L (45-117) 04/28/19 08:00 Total Protein 6.3 g/dl (6.4-8.2) L 04/28/19 08:00 Albumin 2.6 g/dl (3.4-5.0) L 04/28/19 08:00 RPR Titer Nonreactive (NONREACTIVE) 04/28/19 08:00 Labs noted. Assessment: 04/29/19 12:31 AOX3, in no respiratory distress. Full ROM, ambulating in the unit. Withdrawal symptoms. Plan: continue detox.
[2019-04-29] MEDS: MELATONIN 5 MG TABLETS PO PRN (22:14)
[2019-04-29] MEDS: THIAMINE HCL 100 MG TABLET (FP) PO SCH (22:14)
[2019-04-30] MEDS: ABACAVIR/DOLUTEGRAVIR/LAMIVUDI (TRIUMEQ) TABLET -NF PO SCH (06:22)
[2019-04-30] MEDS ORDERED: METHADONE HCL 10 MG TABLET (FOR DETOX USE ONLY) ONE (09:42)
[2019-04-30] MEDS ORDERED: METHADONE HCL 5 MG TABLET (FOR DETOX USE ONLY) ONE (09:42)
[2019-04-30] MEDS ORDERED: METHADONE (DETOX) 10 MG, METHADONE (DETOX) 5 MG PO ONE (10:00)
[2019-04-30] MEDS: PRENATAL VITAMINS W/ FOLIC ACID TABLET (FP) PO SCH (10:40)
[2019-04-30] MEDS: valACYclovir HCL 500 MG TABLET (FP) PO SCH ×2 (10:40→22:36)
[2019-04-30] MEDS: SPIRONOLACTONE 25 MG TABLET (FP) PO SCH (10:40)
--- NOTE | 2019-04-30 11:33 | PN ---
BHS COWS - Scale Resting Pulse: 0= [place] 80 or Below Sweatin= Chills/Flushing Restless Observation: 0= Sits Still Pupil Size: 1= Pupils >than Normal Bone or Joint Aches: 1= Mild Discomfort Runny Nose/ Eye Tearin= None GI Upset > 30mins: 1= Stomach Cramp Tremor Observation of Outstretched Hands: 1= Tremor [place], Not Seen Yawning Observation: 0= None Anxiety or Irritability: 1=Feels Anxious/Irritable Goose Flesh Skin: 0=Smooth Skin COWS Score: 6 BHS Progress Note (SOAP) Subjective: 33 years old male admitted on 04/27/19 for opiate withdrawal sx management treating with methadone detox regiment feeling ok today ate breakfast tolerating food and fluid well Objective: 04/30/19 11:32 Vital Signs Temperature 97.1 F L 04/30/19 05:36 Pulse Rate 69 04/30/19 05:36 Respiratory Rate 16 04/30/19 06:16 Blood Pressure 109/67 04/30/19 05:36 O2 Sat by Pulse Oximetry (%) Laboratory Last Values WBC 4.3 K/mm3 (4.0-10.0) 04/28/19 08:00 RBC 4.45 M/mm3 (4.00-5.60) 04/28/19 08:00 Hgb 13.0 GM/dL (11.7-16.9) 04/28/19 08:00 Hct 39.0 % (35.4-49) 04/28/19 08:00 MCV 87.5 fl (80-96) 04/28/19 08:00 MCH 29.2 pg (25.7-33.7) D 04/28/19 08:00 MCHC 33.3 g/dl (32.0-35.9) 04/28/19 08:00 RDW 13.4 % (11.9-15.9) 04/28/19 08:00 Plt Count 143 K/MM3 (134-434) 04/28/19 08:00 MPV 9.7 fl (7.5-11.1) 04/28/19 08:00 Sodium 139 mmol/L (136-145) 04/28/19 08:00 Potassium 3.8 mmol/L (3.5-5.1) 04/28/19 08:00 Chloride 104 mmol/L (98-107) 04/28/19 08:00 Carbon Dioxide 33 mmol/L (21-32) H 04/28/19 08:00 Anion Gap 2 MMOL/L (8-16) L 04/28/19 08:00 BUN 14.8 mg/dL (7-18) 04/28/19 08:00 Creatinine 0.7 mg/dL (0.55-1.3) 04/28/19 08:00 Est GFR (CKD-EPI)AfAm 143.71 04/28/19 08:00 Est GFR (CKD-EPI)NonAf 123.99 04/28/19 08:00 Random Glucose 72 mg/dL (74-106) L 04/28/19 08:00 Calcium 8.4 mg/dL (8.5-10.1) L 04/28/19 08:00 Total Bilirubin 0.3 mg/dL (0.2-1) 04/28/19 08:00 AST 15 U/L (15-37) 04/28/19 08:00 ALT 19 U/L (13-61) 04/28/19 08:00 Alkaline Phosphatase 114 U/L (45-117) 04/28/19 08:00 Total Protein 6.3 g/dl (6.4-8.2) L 04/28/19 08:00 Albumin 2.6 g/dl (3.4-5.0) L 04/28/19 08:00 RPR Titer Nonreactive (NONREACTIVE) 04/28/19 08:00 lab noted Assessment: 04/30/19 11:33 opiate withdrawal Plan: methadone regiment
[2019-04-30] MEDS: THIAMINE HCL 100 MG TABLET (FP) PO SCH (22:36)
[2019-05-01] MEDS: ABACAVIR/DOLUTEGRAVIR/LAMIVUDI (TRIUMEQ) TABLET -NF PO SCH (07:12)
[2019-05-01] MEDS: IBUPROFEN 400 MG TABLET (FP) PO PRN ×2 (07:44→20:25)
[2019-05-01] MEDS ORDERED: METHADONE HCL 10 MG TABLET (FOR DETOX USE ONLY) PO ONE (10:00)
[2019-05-01] MEDS: valACYclovir HCL 500 MG TABLET (FP) PO SCH ×2 (10:18→22:28)
[2019-05-01] MEDS: PRENATAL VITAMINS W/ FOLIC ACID TABLET (FP) PO SCH (10:18)
[2019-05-01] MEDS: SPIRONOLACTONE 25 MG TABLET (FP) PO SCH (10:19)
--- NOTE | 2019-05-01 11:29 | PN ---
BHS COWS - Scale Resting Pulse: 0= [place] 80 or Below Sweatin= No chills or Flushing Restless Observation: 0= Sits Still Pupil Size: 0= Normal to Room Light Bone or Joint Aches: 1= Mild Discomfort Runny Nose/ Eye Tearin= None GI Upset > 30mins: 1= Stomach Cramp Tremor Observation of Outstretched Hands: 1= Tremor [place], Not Seen Yawning Observation: 0= None Anxiety or Irritability: 1=Feels Anxious/Irritable Goose Flesh Skin: 0=Smooth Skin COWS Score: 4 BHS Progress Note (SOAP) Subjective: 33 years old male admitted on 04/27/19 for opiate withdrawal sx management treating with methadone detox regiment feeling better today slept through the night mild general body aches Objective: 05/01/19 11:29 Vital Signs Temperature 98.0 F 05/01/19 08:53 Pulse Rate 80 05/01/19 08:53 Respiratory Rate 18 05/01/19 08:53 Blood Pressure 100/57 L 05/01/19 08:53 O2 Sat by Pulse Oximetry (%) Laboratory Last Values WBC 4.3 K/mm3 (4.0-10.0) 04/28/19 08:00 RBC 4.45 M/mm3 (4.00-5.60) 04/28/19 08:00 Hgb 13.0 GM/dL (11.7-16.9) 04/28/19 08:00 Hct 39.0 % (35.4-49) 04/28/19 08:00 MCV 87.5 fl (80-96) 04/28/19 08:00 MCH 29.2 pg (25.7-33.7) D 04/28/19 08:00 MCHC 33.3 g/dl (32.0-35.9) 04/28/19 08:00 RDW 13.4 % (11.9-15.9) 04/28/19 08:00 Plt Count 143 K/MM3 (134-434) 04/28/19 08:00 MPV 9.7 fl (7.5-11.1) 04/28/19 08:00 Sodium 139 mmol/L (136-145) 04/28/19 08:00 Potassium 3.8 mmol/L (3.5-5.1) 04/28/19 08:00 Chloride 104 mmol/L (98-107) 04/28/19 08:00 Carbon Dioxide 33 mmol/L (21-32) H 04/28/19 08:00 Anion Gap 2 MMOL/L (8-16) L 04/28/19 08:00 BUN 14.8 mg/dL (7-18) 04/28/19 08:00 Creatinine 0.7 mg/dL (0.55-1.3) 04/28/19 08:00 Est GFR (CKD-EPI)AfAm 143.71 04/28/19 08:00 Est GFR (CKD-EPI)NonAf 123.99 04/28/19 08:00 Random Glucose 72 mg/dL (74-106) L 04/28/19 08:00 Calcium 8.4 mg/dL (8.5-10.1) L 04/28/19 08:00 Total Bilirubin 0.3 mg/dL (0.2-1) 04/28/19 08:00 AST 15 U/L (15-37) 04/28/19 08:00 ALT 19 U/L (13-61) 04/28/19 08:00 Alkaline Phosphatase 114 U/L (45-117) 04/28/19 08:00 Total Protein 6.3 g/dl (6.4-8.2) L 04/28/19 08:00 Albumin 2.6 g/dl (3.4-5.0) L 04/28/19 08:00 RPR Titer Nonreactive (NONREACTIVE) 04/28/19 08:00 lab noted Assessment: 05/01/19 11:31 opiate withdrawal Plan: methadone regiment
[2019-05-01] MEDS: THIAMINE HCL 100 MG TABLET (FP) PO SCH (22:28)
[2019-05-02] MEDS ORDERED: METHADONE HCL 5 MG TABLET (FOR DETOX USE ONLY) PO ONE (06:00)
[2019-05-02 06:05] VITALS: BP 105/56; PULSE 64; TEMP 97
[2019-05-02] MEDS: ABACAVIR/DOLUTEGRAVIR/LAMIVUDI (TRIUMEQ) TABLET -NF PO SCH (06:52)
--- NOTE | 2019-05-02 13:16 | DS ---
[facility] Detox Discharge Summary Admission Date: 04/27/19 Discharge Date: 05/02/19 - History Present History: Opioid Dependence Additional Comments: 33 years old male admitted on04/27/19 for opiate withdrawal sx management treating with methadone detox regiment Mr Santoyo has completed the methadone detox regiment and tolerated well seen by the psychiatrist no medical intervention alert oriented x 3 cardiac s1s2 regular rate rhythme respiratory clear lungs bilaterally on auscultation skin warm and dry Pertinent Past History: time for discharge 33 minutes patient prefers to return to infectious disease primary care provider for medical and mental issues - Physical Exam Results Vital Signs: Vital Signs Temperature 97.0 F L 05/02/19 06:04 Pulse Rate 64 05/02/19 06:04 Respiratory Rate 18 05/02/19 06:04 Blood Pressure 105/56 L 05/02/19 06:04 O2 Sat by Pulse Oximetry (%) Pertinent Admission Physical Exam Findings: opiate withdrawal Laboratory Last Values WBC 4.3 K/mm3 (4.0-10.0) 04/28/19 08:00 RBC 4.45 M/mm3 (4.00-5.60) 04/28/19 08:00 Hgb 13.0 GM/dL (11.7-16.9) 04/28/19 08:00 Hct 39.0 % (35.4-49) 04/28/19 08:00 MCV 87.5 fl (80-96) 04/28/19 08:00 MCH 29.2 pg (25.7-33.7) D 04/28/19 08:00 MCHC 33.3 g/dl (32.0-35.9) 04/28/19 08:00 RDW 13.4 % (11.9-15.9) 04/28/19 08:00 Plt Count 143 K/MM3 (134-434) 04/28/19 08:00 MPV 9.7 fl (7.5-11.1) 04/28/19 08:00 Sodium 139 mmol/L (136-145) 04/28/19 08:00 Potassium 3.8 mmol/L (3.5-5.1) 04/28/19 08:00 Chloride 104 mmol/L (98-107) 04/28/19 08:00 Carbon Dioxide 33 mmol/L (21-32) H 04/28/19 08:00 Anion Gap 2 MMOL/L (8-16) L 04/28/19 08:00 BUN 14.8 mg/dL (7-18) 04/28/19 08:00 Creatinine 0.7 mg/dL (0.55-1.3) 04/28/19 08:00 Est GFR (CKD-EPI)AfAm 143.71 04/28/19 08:00 Est GFR (CKD-EPI)NonAf 123.99 04/28/19 08:00 Random Glucose 72 mg/dL (74-106) L 04/28/19 08:00 Calcium 8.4 mg/dL (8.5-10.1) L 04/28/19 08:00 Total Bilirubin 0.3 mg/dL (0.2-1) 04/28/19 08:00 AST 15 U/L (15-37) 04/28/19 08:00 ALT 19 U/L (13-61) 04/28/19 08:00 Alkaline Phosphatase 114 U/L (45-117) 04/28/19 08:00 Total Protein 6.3 g/dl (6.4-8.2) L 04/28/19 08:00 Albumin 2.6 g/dl (3.4-5.0) L 04/28/19 08:00 RPR Titer Nonreactive (NONREACTIVE) 04/28/19 08:00 lab noted - Treatment Hospital Course: Detox Protocol Followed, Detoxed Safely, Responded well, Discharged Condition Good, Rehab Referral Accepted Patient has Accepted a Rehab Referral to: infectious disease primary care provider - Medication Discharge Medications: Ambulatory Orders Abacavir/Dolutegravir/Lamivudi [Triumeq 600-50-300 mg Tablet] 1 each PO DAILY Estradiol Valerate [Delestrogen] 40 mg IM MONTHLY 04/04/16 Spironolactone [Aldactone -] 200 mg PO DAILY 04/04/16 Valacyclovir HCl [Valtrex -] 500 mg PO BID tablet 04/08/16 - Diagnosis (1) HIV (human immunodeficiency virus infection) Status: Chronic Qualifiers: HIV symptom status: asymptomatic Qualified Code(s): Z21 - Asymptomatic human immunodeficiency virus [HIV] infection status (2) Nicotine dependence Status: Acute Qualifiers: Nicotine product type: cigarettes Substance use status: in withdrawal Qualified Code(s): F17.213 - Nicotine dependence, cigarettes, with withdrawal (3) Substance induced mood disorder Status: Suspected (4) Opioid use disorder Status: Acute - AMA Did Patient Leave Against Medical Advice: No COWS (PN) - Opiate Withdrawal Resting Pulse: 0= [place] 80 or Below Sweatin= No chills or Flushing Restless Observation: 0= Sits Still Pupil Size: 0= Normal to Room Light Bone or Joint Aches: 0= None Runny Nose/ Eye Tearin= None GI Upset > 30mins: 1= Stomach Cramp Tremor Observation of Outstretched Hands: 0= None Yawning Observation: 0= None Anxiety or Irritability: 1=Feels Anxious/Irritable Goose Flesh Skin: 0=Smooth Skin COWS Score: 2
== END 2019-05-02 09:05 | disposition home or self-care (01) | DRG 773 ==
LOC: YASAS 13:36 → Y3N 16:46
PROVIDERS: ADMIT Allergy & Immunology; ATTEND Allergy & Immunology
PROC: HZ2ZZZZ Detoxification Services for Substance Abuse Treatment (ICD-10-PCS; principal; 2019-04-27)
DX: F11.23 Opioid dependence with withdrawal (principal); F15.20 Other stimulant dependence, uncomplicated; F17.213 Nicotine dependence, cigarettes, with withdrawal; F19.24 Other psychoactive substance dependence with psychoactive substance-induced mood disorder; F31.9 Bipolar disorder, unspecified; F90.9 Attention-deficit hyperactivity disorder, unspecified type; Z21 Asymptomatic human immunodeficiency virus [HIV] infection status; Z86.19 Personal history of other infectious and parasitic diseases; Z88.2 Allergy status to sulfonamides; Z88.8 Allergy status to other drugs, medicaments and biological substances; Z91.5 Personal history of self-harm; Z79.890 Hormone replacement therapy
CPT/HCPCS: 36415; 80053; 85027; 86593; 90670; 93005; 93010; G0008; G0009; Q2036

== ENCOUNTER 2020-11-19 13:04 | Inpatient (IN) | payer OTHER ==
[2020-11-19 15:05] VITALS: BMI 19.5
[2020-11-19] MEDS ORDERED: IBUPROFEN 400 MG TABLET (FP) PO PRN (15:41)
[2020-11-19] MEDS ORDERED: MAGNESIUM HYDROX 2400MG/30ML ORAL SUSPENSION 30 ML CUP PO PRN (15:41)
[2020-11-19] MEDS ORDERED: MENTHOL/PHENOL 1 EACH UD MM PRN (15:41)
[2020-11-19] MEDS ORDERED: BISMUTH SUBSALICYLATE 524 MG/30 ML PO PRN (15:41)
[2020-11-19] MEDS ORDERED: MAGNESIUM CITRATE 300 ML BOTTLE PO PRN (15:41)
[2020-11-19] MEDS ORDERED: cloNIDine HCL 0.1 MG TABLET PO PRN (15:41)
[2020-11-19] MEDS ORDERED: NICOTINE 10 MG CARTRIDGE (INHALER) IH PRN (15:41)
[2020-11-19] MEDS ORDERED: ONDANSETRON *ODT* 4 MG TABLET SL PRN (15:41)
[2020-11-19] MEDS ORDERED: NICOTINE 7 MG/24 HOURS TOPICAL PATCH TD PRN (15:41)
[2020-11-19] MEDS ORDERED: MAG HYDROX/AL HYDROX/SIMETH 30 ML UNIT-DOSE CUP PO PRN (15:41)
[2020-11-19] MEDS ORDERED: methaDONE HCL 10 MG TABLET (FOR DETOX USE ONLY) PO ONE (15:41)
[2020-11-19] MEDS ORDERED: ACETAMINOPHEN 325 MG TABLET (FP) PO PRN ×2 (15:41)
[2020-11-19] MEDS: CLINDAMYCIN HCL 150 MG CAPSULE (FP) PO SCH ×2 (18:20→23:01)
[2020-11-19] MEDS: PRENATAL VITAMINS W/ FOLIC ACID TABLET (FP) PO SCH (18:24)
[2020-11-19] MEDS: hydrOXYzine PAMOATE 25 MG CAPSULE (FP) PO SCH ×2 (19:38→23:29)
[2020-11-19] MEDS: MELATONIN 5 MG TABLETS PO SCH (23:29)
[2020-11-19] MEDS: THIAMINE HCL 100 MG TABLET (FP) PO SCH (23:29)
[2020-11-20] MEDS: hydrOXYzine PAMOATE 25 MG CAPSULE (FP) PO SCH ×6 (05:47→22:43)
[2020-11-20] MEDS: CLINDAMYCIN HCL 150 MG CAPSULE (FP) PO SCH ×3 (05:47→18:07)
[2020-11-20] MEDS ORDERED: methaDONE HCL 10 MG TABLET (FOR DETOX USE ONLY) ONE (09:32)
[2020-11-20 10:28] LABS: HEMATOCRIT 35.1 % (35.4-49); HEMOGLOBIN 11.6 GM/dL (11.7-16.9); MCH 26.2 pg (25.7-33.7); MCHC 33.1 g/dl (32.0-35.9); PLATELET COUNT 120 10^3/uL (134-434); RBC 4.44 M/mm3 (4.00-5.60); RDW 15.5 % (11.9-15.9); WHITE BLOOD COUNT 2.6 K/mm3 (4.0-10.0)
[2020-11-20 10:31] LABS: ALBUMIN 2.5 g/dl (3.4-5.0); BLOOD UREA NITROGEN 5.7 mg/dL (7-18); CALCIUM 8.2 mg/dL (8.5-10.1)
[2020-11-20 10:34] LABS: CREATININE 0.7 mg/dL (0.55-1.3)
[2020-11-20 10:36] LABS: BILIRUBIN,TOTAL 0.6 mg/dL (0.2-1); TOT PROT 7.2 g/dl (6.4-8.2)
[2020-11-20] MEDS: PRENATAL VITAMINS W/ FOLIC ACID TABLET (FP) PO SCH (10:38)
[2020-11-20] MEDS: METHOCARBAMOL 500 MG TABLET PO PRN (10:41)
[2020-11-20] MEDS: clonazePAM 0.5 MG ODT TABLETS SL PRN (19:30)
[2020-11-20] MEDS: MELATONIN 5 MG TABLETS PO SCH ×2 (22:32→22:43)
[2020-11-20] MEDS: THIAMINE HCL 100 MG TABLET (FP) PO SCH ×2 (22:34→22:43)
[2020-11-21] MEDS: CLINDAMYCIN HCL 150 MG CAPSULE (FP) PO SCH ×4 (01:12→17:57)
[2020-11-21] MEDS: hydrOXYzine PAMOATE 25 MG CAPSULE (FP) PO SCH ×5 (05:52→23:11)
[2020-11-21] MEDS ORDERED: methaDONE HCL 10 MG TABLET (FOR DETOX USE ONLY) PO ONE (10:00)
[2020-11-21] MEDS: PRENATAL VITAMINS W/ FOLIC ACID TABLET (FP) PO SCH (10:35)
[2020-11-21] MEDS ORDERED: PENICILLIN G BENZATHINE 2,400,000 UNIT/4 ML PFS IM ONE (12:30)
[2020-11-21] MEDS ORDERED: hydrOXYzine PAMOATE 50 MG CAPSULE (FP) PO ONE (17:47)
[2020-11-21] MEDS: METHOCARBAMOL 500 MG TABLET PO PRN (17:57)
[2020-11-21] MEDS: clonazePAM 0.5 MG ODT TABLETS SL PRN (17:57)
[2020-11-21] MEDS: THIAMINE HCL 100 MG TABLET (FP) PO SCH (23:11)
[2020-11-21] MEDS: MELATONIN 5 MG TABLETS PO SCH (23:11)
[2020-11-22] MEDS: CLINDAMYCIN HCL 150 MG CAPSULE (FP) PO SCH ×3 (00:09→12:20)
[2020-11-22] MEDS: clonazePAM 0.5 MG ODT TABLETS SL PRN (05:39)
[2020-11-22] MEDS: hydrOXYzine PAMOATE 25 MG CAPSULE (FP) PO SCH ×2 (05:39→09:59)
[2020-11-22] MEDS ORDERED: diazePAM 5 MG TABLET PO PRN (09:11)
[2020-11-22] MEDS ORDERED: methaDONE HCL 10 MG TABLET (FOR DETOX USE ONLY) ONE (09:31)
[2020-11-22] MEDS: METHOCARBAMOL 500 MG TABLET PO PRN (09:58)
[2020-11-22] MEDS: PRENATAL VITAMINS W/ FOLIC ACID TABLET (FP) PO SCH (09:59)
[2020-11-22 10:19] VITALS: BP 100/74; PULSE 71; TEMP 98.1
[2020-11-23] MEDS ORDERED: methaDONE HCL 10 MG TABLET (FOR DETOX USE ONLY) PO ONE (10:00)
== END 2020-11-22 12:45 | disposition left against medical advice (07) | DRG 770 ==
LOC: YASAS 13:04 → Y6N 16:36
PROVIDERS: ADMIT Allergy & Immunology; ATTEND Allergy & Immunology
PROC: HZ2ZZZZ Detoxification Services for Substance Abuse Treatment (ICD-10-PCS; principal; 2020-11-19)
DX: F11.23 Opioid dependence with withdrawal (principal); F17.210 Nicotine dependence, cigarettes, uncomplicated; F19.282 Other psychoactive substance dependence with psychoactive substance-induced sleep disorder; F19.24 Other psychoactive substance dependence with psychoactive substance-induced mood disorder; F31.9 Bipolar disorder, unspecified; F64.0 Transsexualism; F90.0 Attention-deficit hyperactivity disorder, predominantly inattentive type; Z21 Asymptomatic human immunodeficiency virus [HIV] infection status; L03.115 Cellulitis of right lower limb; Z86.19 Personal history of other infectious and parasitic diseases; Z91.19 Patient's noncompliance with other medical treatment and regimen; Z88.2 Allergy status to sulfonamides; Z88.8 Allergy status to other drugs, medicaments and biological substances
CPT/HCPCS: 36415; 80053; 85027; 86593; 86780; C9803; U0003; U0005